=== PATIENT | male | born 1960 | race Caucasian/White ===

== ENCOUNTER 2019-02-08 07:16 | Emergency (ER) | payer OTHER ==
[~2019-02-08] VITALS: Ht 167.6 cm; Wt 72.6 kg
[2019-02-08 07:51] LABS: ABSOLUTE LYMPHOCYTES 1.9 thou/uL (0.8-5.3); ABSOLUTE MONOCYTES 0.7 thou/uL (0.0-1.2); ABSOLUTE NEUTROPHILS 11.6 thou/uL (1.6-8.1); BASOPHILS 0.3 %; EOSINOPHILS 0.1 %; HEMATOCRIT 48.9 % (42.0-52.0); HEMOGLOBIN 16.8 gm/dL (14.0-18.0); LYMPHOCYTES 13.3 %; MCH 31.8 pg (26.0-34.0); MCHC 34.3 g/dL (28.0-37.0); MCV 92.9 fL (80.0-100.0); MONOCYTES 5.2 %; MPV 7.6 fl. (7.2-11.1); NUCLEATED RBCS 0 /100WBC; PLATELET COUNT* 411 thou/uL (150-400); POLYS 81.1 %; RBC 5.27 mil/uL (4.50-6.00); RDW-CV 13.2 % (10.5-14.5); WBC 14.3 thou/uL (4.0-11.0)
[2019-02-08 07:58] LABS: CALCIUM 9.5 mg/dL (8.5-10.1); CREATININE 1.4 mg/dL (0.6-1.3); POTASSIUM 3.4 mmol/L (3.5-5.1)
[2019-02-08 08:03] LABS: ALBUMIN 4.5 g/dL (3.4-5.0); TOTAL PROTEIN 8.4 g/dL (6.4-8.2)
[2019-02-08] MEDS ORDERED: ZOFRAN4 MG PO (09:09)
[2019-02-08] MEDS ORDERED: HYDROCODON-ACE1 EAC7 PO (09:09)
[2019-02-08] MEDS ORDERED: FLOMAX0.4 MG PO (09:09)
[2019-02-08 09:17] VITALS: BP 145/82
== END 2019-02-08 09:18 | disposition home or self-care (01) ==
LOC: M.ERS 07:16
PROVIDERS: Emergency Medicine
DX: N20.1 Calculus of ureter (principal); Z87.442 Personal history of urinary calculi